=== PATIENT | female | born 1990 | race Caucasian/White ===

== ENCOUNTER 2017-05-31 19:44 | Emergency (ER) | payer SELFPAY ==
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
[2017-05-31] MEDS: NORMAL SALINE 10 ML SYRINGE FLUSH IVP PRN (19:55)
[2017-05-31 20:00] LABS: HEMATOCRIT 43.8 % (37.0-47.0); MEAN CORPUSCULAR HEMOGLOBIN 31.4 PG (27-31); MEAN CORPUSCULAR HGB CONC 34.2 g/dL (33-37); MEAN CORPUSCULAR VOLUME 91.8 FL (81-99); RED BLOOD COUNT 4.77 10^6/uL (4.20-5.40)
[2017-05-31 20:01] LABS: BASOPHILS # (AUTO) 0.06 10*3/UL; BASOPHILS % (AUTO) 0.6 % (0-1); EOSINOPHILS # (AUTO) 0.12 10*3/UL; EOSINOPHILS % (AUTO) 1.1 % (0-8); LYMPHOCYTES # (AUTO) 1.79 10*3/uL; MEAN PLATELET VOLUME 9.6 FL (7.4-12.2); MONOCYTES # (AUTO) 0.63 10*3/UL (0.3-0.8); MONOCYTES % (AUTO) 5.9 % (5-15); NEUTROPHILS # (AUTO) 8.09 10*3/UL; NEUTROPHILS % (AUTO) 75.5 % (50-80); PLATELET MORPHOLOGY COMMENT NORMAL MORPHOLOGY (NORM); RBC MORPHOLOGY COMMENT NORMAL MORPHOLOGY (NORM); WBC MORPHOLOGY COMMENT NORMAL MORPHOLOGY (NORM)
[2017-05-31 20:09] LABS: BLOOD UREA NITROGEN 15 mg/dL (7-22); BUN/CREATININE RATIO 13.63 (6-20); CALCIUM 9.4 mg/dL (8.7-10.7); EST GLOMERULAR FILTRATION > 60 (>60 ml/min/1.73m(2)); SERUM ALBUMIN 4.7 g/dL (3.5-4.8)
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
[2017-06-01 02:03] VITALS: RESP 18; TEMP 98.4
== END 2017-05-31 21:52 | disposition home or self-care (01) ==
LOC: ER 19:44
DX: S10.83XA Contusion of other specified part of neck, initial encounter (principal); R13.19 Other dysphagia; R06.09 Other forms of dyspnea; S40.811A Abrasion of right upper arm, initial encounter; S40.021A Contusion of right upper arm, initial encounter; Y04.8XXA Assault by other bodily force, initial encounter
CPT/HCPCS: 70491; 80053; 84703; 85025; 99283

== ENCOUNTER → 2017-07-04 | Outpatient (CLI) | payer SELFPAY ==
--- NOTE | 2017-07-04 10:48 | DI ---
LEFT WRIST, 07/04/2017 10:27 AM: Clinical History: Left wrist pain. Previous Exam: None at this facility. 3 views are submitted. There is no acute soft tissue, osseous, or joint abnormality. Reading: Normal left wrist exam.
== END ==
LOC: ORTHO 10:34
PROVIDERS: ATTEND Orthopaedic Surgery
DX: M25.532 Pain in left wrist (principal); M67.432 Ganglion, left wrist
CPT/HCPCS: 73110

== ENCOUNTER 2018-07-15 11:12 | Inpatient (IN) ==
[2018-07-15 23:14] VITALS: O2SAT 99
[2018-07-16 18:01] VITALS: BP 100/40; RESP 18; TEMP 97.7
== END 2018-07-16 21:00 | disposition home or self-care (01) | DRG 775 ==
LOC: OBIP 11:13
PROVIDERS: ADMIT Family Medicine; ATTEND Family Medicine